=== PATIENT | female | born 1990 | race Caucasian/White ===

== ENCOUNTER 2024-11-21 19:42 | Emergency (ER) | payer BC, SELFPAY ==
[2024-11-21] VITALS (7 sets, daily range): BP systolic 94–138; BP diastolic 45–83; PULSE 76–82; RESP 17–18; TEMP 36.9; O2SAT 95–100; BMI 31.0
--- OUTSIDE RECORDS SUMMARY | 2024-11-21 | XMS_ITS | Encounter Summary ---
Author Organization [facility] Address [address] [place] [address] Care Team Providers Care Garment Patternmaker Name Role Phone Unavailable Primary Care Provider Unavailabl e Reason for Visit * Reason Comments Chest Pain Vomiting Encounter Details Date Type Department Care Team (Late st Contact Info) Description 11/21/2024 - 11/21/2024 3:35 AM CDT Emergency [facility] Emergency Medicine [address] [facility] [address] [place] [address] Francisco J Richards MD [address] [place] [address] [place] [address] Gastroenteritis (Primary Dx) Discharge Disposition: Home or Self Care Social History Tobacco Use Types Packs/Day Years Used Date Smoking Tobacco: Never Smokeless Tobacco: Never Tobacco Cessation:Counseling Given: Not Answered Alcohol Use Standard Drinks/Week Comments Not Currently 0 (1 standard drink = 0.6 oz pur e alcohol) Feeling Safe Answer Date Recorded Are you in a relationship wi th someone who hurts you emotionally and/or physically? No 11/21/2024 Comments No Sex and Gender Information Value Date Recorded Sex Assigned at Not on file Legal Sex Female 11:55 PM CDT Gender Identity Not on file Sexual Orientation Not on file documented as of this encounter Last Filed Vital Signs Vital Sign Reading Time Taken Comments Blood Pressure 103/73 11/21/2024 3:30 AM CDT Pulse 87 11/21/2024 3:30 AM CDT Temperature 36.4 C (97.6 F) 11/21/2024 12:03 AM CDT Respiratory Rate 20 11/21/2024 3:30 AM CDT Oxygen Saturation 97% 11/21/2024 3:30 AM CDT Inhaled Oxygen Concentration - - Weight 71.7 kg (158 lb) 11/21/2024 12:03 AM CDT Height 152.4 cm (5') 11/21/2024 12:03 AM CDT Body Mass Index 30.86 11/21/2024 12:03 AM CDT documented in this encounter Discharge Instructions * Attachments The following attachments cannot be sent through Care Everywhere. * Gastroenteritis (Salvadorean) * Ondansetron (Salvadorean) * Prochlorperazine (Salvadorean) * Hydromorphone (Salvadorean) documented in this encounter Medications at Time of Discharge norgestrel (OPILL ORAL) Take by mouth. ondansetron (ZOFRAN ODT) 4 mg Tablet, Rapid Dissolve Take 1 Tablet (4 mg) by mouth every 8 hours as needed for Nausea/Emesis. Dissolve tablet on top of tongue, then swallow with saliva. 20 Tablet 11/21/2024 ondansetron (ZOFRAN ODT) 4 mg Tablet, Rapid Dissolve Take 1 Tablet (4 mg) by mouth every 8 hours as needed for Nausea/Emesis. Dissolve tablet on top of tongue, then swallow with saliva. 4 Tablet 11/21/2024 documented as of this encounter Progress Notes * Kameron Perera RCP - 11/21/2024 12:10 AM CDT EKG completed. Results given to Dr. RICHARDS and scanned into [place] [facility]. documented in this encounter ED Notes * Krissy Klein APRN - 11/21/2024 7:20 AM CDT Patient's called the emergency department this morning stating that the patient's pain had returned in her chest. He requested that we call the pharmacy and prescribe something for her pain. I did discuss with the that since the patient had some relief prior to discharge and was discharged by the mushroom growing supervisor physician that in order to prescribe her a pain medication that we would n eed to reevaluate her especially based on the complaint of chest pain. The became angry andstated that is fucking ridiculous are you fucking kidding me. I have to come all the way back and there and have another fucking thousand dollar bill when we were just there a few hours ago. As I attempted to explain that we could not prescribe pain medication or make a diagnosis without seeing the patient, the continued to yell and curse over the phone. I expressed that it was unnecessary for him to speak this way and that I was simply trying to help to which he replied come on ladygrow some balls I am an adult this how adults fucking talk. He continued to cuss and yell over thephone without listening to what I was trying to explain to him. I stated if she is having new or worsening pain we would be happy to see her and you can bring her up here for a revaluation. At thispoint a call was ended on my end due to to the continuing to yell and curse. He did call back and I again attempted to explain to him given that the patient was discharged by the mushroom growing supervisor physician after being medicated and having relief, we cannot prescribe pain medication without evaluating her chest pain. The patient then stated this is fucking insane I am trying to help my we were just up there for 3 fucking hours ago. I explained that I cannot legally prescribe pain medications without evaluating the patient and he said that is a fucking lie, you can too. He continued to yell and then hung up the phone when I again told him that I could not prescribe her a pain medication. * Becky Parra RN - 11/21/2024 3:18 AM CDT Pt states that her pain is a bit better and is a 6/10 and that her nausea has subsided. Explained to her that the Dr wanted her nausea gone and CP to be better before she went home. Asked patient if those things were met and if she felt well enough to go home and she said yes. Notified Dr. Richards of conversation with patient and he said to discharge patient. * Becky Parra RN - 11/21/2024 2:20 AM CDT Pt reports no relief in CP and that it is a 7/10 on pain scale. Provider notified and order for additional pain medication obtained. See orders. * Becky Parra RN - 11/21/2024 1:20 AM CDT Pt drank water and is currently vomiting green watery emesis. Notified provider and order placed for compazine 5mg IV x 1. * Becky Parra RN - 11/21/2024 1:08 AM CDT Take home pack of zofran given to patient with education instructions. Patient verbalized understand of medication education/and how to take medication. * Becky Parra RN - 11/21/2024 12:50 AM CDT Pt asked for water and was educated on not to drink water until her nausea was better. * Becky Parra RN - 11/21/2024 12:12 AM CDT Pt states that she has had mid sternal CP that is intermittent and is described as tightness with vomiting/dry heaving x 3 hours [employer]. Pt states that her and her went to a new diner today around noon and they ate the same thing but she had vegetables that he didn't have. Pt states that she is on BC pills and doesn't think there is a chance she is . Pt denies SOB, abdominal pain or light headedness but states she is a little dizzy. Pt is cool and clammy to the touch. bedside with patient. documented in this encounter Plan of Treatment Not on file documented as of this encounter Procedures Procedure Name Priority Date/Time Associated Diagnosis Comments CBC WITH DIFFERENTIAL Stat 11/21/2024 12:15 AM CDT LIPASE Stat 11/21/2024 12:15 AM CDT COMPREHENSIVE METABOLIC PANEL Stat 11/21/2024 12:15 AM CDT documented in this encounter Results * LIPASE (11/21/2024 12:15 AM CDT) LIPASE 52 13 - 60 U/L 11/21/2024 12:42 AM CDT [facility] Blood BLOOD SPECIMEN / Unknown Collection / Unknown 11/21/2024 12:15 AM CDT 11/21/2024 12:25 AM CDT Francisco J Richards MD CHEMISTRY ORDERABLES Fin al Result [facility] CLIA # [id number] [address] [place] [address] [id number] * (ABNORMAL) COMPREHENSIVE METABOLIC PANEL (11/21/2024 12:15 AM CDT) SODIUM 136 136 - 145 mmol/L 11/21/2024 12:42 AM CDT [facility] POTASSIUM 4.4 3.5 - 5.1 mmol/L 11/21/2024 12:42 AM CDT [facility] CHLORIDE 101 98 - 107 mmol/L 11/21/2024 12:42 AM CDT [facility] CO2 17(L) 22 - 29 mmol/L 11/21/2024 12:42 AM CDT [facility] CALCIUM 10.0 8.6 - 10.0 mg/dL 11/21/2024 12:42 AM T [facility] BUN 15 6 - 20 mg/dL 11/21/2024 12:42 AM T [facility] CREATININE 0.79 0.51 - 0.95 mg/dL 11/21/2024 12:42 AM [facility] GLUCOSE 176(H) 74 - 99 mg/dL 11/21/2024 12:42 AM [facility] TOTAL PROTEIN 8.0 6.6 - 8.7 g/dL 11/21/2024 12:42 AM [facility] ALBUMIN 4.7 3.5 - 5.2 g/dL 11/21/2024 12:42 AM [facility] BILIRUBIN TOTAL 0.6 0.0 - 1.2 mg/dL 11/21/2024 12:42 AM [facility] ALKALINE PHOSPHATASE 66 35 - 104 U/L 11/21/2024 12:42 AM [facility] AST 23 0 - 35 U/L 11/21/2024 12:42 AM [facility] Comment:Hemolysis present. R esult may be falsely elevated. ALT 12 0 - 35 U/L 11/21/2024 12:42 AM [facility] GFR >60 >=60 mL/min/1.7 3 sq meter 11/21/2024 12:42 AM [facility] Comment:eGFR calculated with 2020 CKD-EPI equation. Vegetarian diet, extremely high or low muscle mass, and may affect results. Cystatin C with Glomerular Filtration Rate is a suitable alternative for these patients. ANION GAP 18 5 - 20 mmol/L 11/21/2024 12:42 AM [facility] Blood BLOOD SPECIMEN / Unknown Collection / Unknown 11/21/2024 12:15 AM CDT 11/21/2024 12:25 AM CDT us Francisco J Richards MD CHEMISTRY ORDERABLES Fin al Result [facility] CLIA # [id number] [address] [place] [id number] * (ABNORMAL) CBC WITH DIFFERENTIAL (11/21/2024 12:15 AM CDT) WBC 14.9(H) 4.0 - 10.0 K/uL 11/21/2024 12:28 AM [facility] RBC 4.67 3.93 - 5.22 M/uL 11/21/2024 12:28 AM [facility] HEMOGLOBIN 14.4 11.2 - 15.7 g/dL 11/21/2024 12:28 AM [facility] HEMATOCRIT 41.7 34.1 - 44.9 % 11/21/2024 12:28 AM [facility] MCV 89.3 79.4 - 94.8 fL 11/21/2024 12:28 AM [facility] MCH 30.8 25.6 - 32.2 pg 11/21/2024 12:28 AM [facility] MCHC 34.5 32.2 - 35.5 g/dL 11/21/2024 12:28 AM [facility] RDW 13.2 11.0 - 14.5 % 11/21/2024 12:28 AM [facility] RDW-STDEV 42.5 36.9 - 56.9 fL 11/21/2024 12:28 AM [facility] PLATELETS 294 163 - 337 K/uL 11/21/2024 12:28 AM [facility] MPV 9.3(L) 10.0 - 14.8 fL 11/21/2024 12:28 AM [facility] NEUTROPHILS 85(H) 34 - 71 % 11/21/2024 12:28 AM [facility] LYMPHOCYTES 9(L) 19 - 52 % 11/21/2024 12:28 AM [facility] MONOCYTES 5 5 - 13 % 11/21/2024 12:28 AM [facility] EOSINOPHILS 1 1 - 6 % 11/21/2024 12:28 AM [facility] BASOPHILS 0 0 - 1 % 11/21/2024 12:28 AM [facility] IMMATURE GRANULOCYTES 1 % 11/21/2024 12:28 AM [facility] NEUTROPHIL ABSOLUTE 12.64(H) 1.56 - 6.13 K/uL 11/21/2024 12:28 AM CDT [facility] LYMPHOCYTE ABSOLUTE 1.35 1.20 - 3.40 K/uL 11/21/2024 12:28 AM CDT [facility] MONOCYTE ABSOLUTE 0.67(H) 0.24 - 0.36 K/uL 11/21/2024 12:28 AM CDT [facility] EOSINOPHIL ABSOLUTE 0.08 0.04 - 0.36 K/uL 11/21/2024 12:28 AM CDT [facility] BASOPHILS ABSOLUTE 0.06 0.01 - 0.08 K/uL 11/21/2024 12:28 AM CDT [facility] IMMATURE GRANULOCYTES ABSOLUTE 0.10 K/uL 11/21/2024 12:28 AM T [facility] Blood BLOOD SPECIMEN / Unknown Collection / Unknown 11/21/2024 12:15 AM CDT 11/21/2024 12:25 AM CDT Francisco J Richards MD HEMATOLOGY ORDERABLES [id number] [address] [place] [phone] documented in this encounter Visit Diagnoses Diagnosis Gastroenteritis- Primary Other and unspecified noninfectious gastroenteritis and colitis documented in this encounter Administered Medications Inactive Administered Medications - up to 3 most recent administrations Medication Order MAR Action Action Date Dose Rate Site aluminum-magnesium HYDROXIDE (MAALOX) 200-200 mg/5 mL oral suspension 20 mL 20 mL, Oral, ONE TIME ONLY, 1 dose, On 11/21/24 at 0200, Routine Given 11/21/2024 2:09 AM CDT 20 mL HYDROmorphone (PF) (DILAUDID) injection 0.5 mg 0.5 mg, IV, ONE TIME ONLY, 1 dose, On 11/21/24 at 0230, RoutineIndications:pain Given 11/21/2024 2:36 AM CDT 0.5 mg lidocaine (XYLOCAINE) 2 % viscous oral solution 10 mL 10 mL, Mouth/Throat, ONE TIME ONLY, 1 dose, On 11/21/24 at 0200, Routine Given 11/21/2024 2:09 AM CDT 10 mL ondansetron (ZOFRAN) 4 mg/2 mL injection 4 mg 4 mg, IV, ONE TIME ONLY, 1 dose, On 11/21/24 at 0015, Stat Given 11/21/2024 12:31 AM CDT 4 mg prochlorperazine (COMPAZINE) injection 5 mg 5 mg, IV, ONE TIME ONLY, 1 dose, On 11/21/24 at 0130, Stat Given 11/21/2024 1:37 AM CDT 5 mg sodium chloride 0.9 % bolus solution 1,000 mL 1,000 mL, IV, ONE TIME ONLY, 1 dose, On 11/21/24 at 0015, at 2,000 mL/hr, Administer over 30 Minutes, Routine New Bag 11/21/2024 12:31 AM CDT 1,000 mL 2000 mL/hr documented in this encounter Active and Recently Administered Medications Times are shown in CDT. Scheduled Medication Order 11/19/2024 11/20/2024 11/21/2024 aluminum-magnesium HYDROXIDE (MAALOX) 200-200 mg/5 mL oral suspension 20 mL (COMPLETED)(Linked Group 1) 20 mL, Oral, ONE TIME ONLY, 1 dose, On 11/21/24 at 0200, Routine 0209 (Given - Provid er: Becky Parra RN) HYDROmorphone (PF) (DILAUDID) injection 0.5 mg (COMPLETED) 0.5 mg, IV, ONE TIME ONLY, 1 dose, On 11/21/24 at 0230, Routine 0236 (Given - Provid er: Becky Parra RN) lidocaine (XYLOCAINE) 2 % viscous oral solution 10 mL (COMPLETED)(Linked Group 1) 10 mL, Mouth/Throat, ONE TIME ONLY, 1 dose, On 11/21/24 at 0200, Routine 0209 (Given - Provid er: Becky Parra RN) ondansetron (ZOFRAN) 4 mg/2 mL injection 4 mg (COMPLETED) 4 mg, IV, ONE TIME ONLY, 1 dose, On 11/21/24 at 0015, Stat 0031 (Given - Provid er: Marly Arnett RN) prochlorperazine (COMPAZINE) injection 5 mg (COMPLETED) 5 mg, IV, ONE TIME ONLY, 1 dose, On 11/21/24 at 0130, Stat 0137 (Given - Provid er: Becky Parra RN) sodium chloride 0.9 % bolus solution 1,000 mL (COMPLETED) 1,000 mL, IV, ONE TIME ONLY, 1 dose, On 11/21/24 at 0015, at 2,000 mL/hr, Administer over 30 Minutes, Routine 0031 (New Bag - Prov ider: Marly Arnett RN)0101 (Stopped - Provider: Becky Parra RN) Linked Groups Order Group 1: aluminum-magnesium HYDROXIDE (MAALOX) 200-200 mg/5 mL oral suspension 20 mL (COMPLETED)Jump to med 20 mL, Oral, ONE TIME ONLY, 1 dose, On 11/21/24 at 0200, Routine And lidocaine (XYLOCAINE) 2 % viscous oral solution 10 mL (COMPLETED)Jump to med 10 mL, Mouth/Throat, ONE TIME ONLY, 1 dose, On 11/21/24 at 0200, Routine documented in this encounter
--- OUTSIDE RECORDS SUMMARY | 2024-11-21 19:50 | XMS_ITS | Encounter Summary ---
Author Organization [employer] Address [address] [facility] Attn: Epic Prelude ADT ELISHA AUGUST [address] Care Team Providers Care Paymaster Of Purses Name Role Phone Unavailable Primary Care Provider Unavailabl e Encounter Details Date Type Department Care Team (Latest Contact Info) Description 11/21/2024 Travel Social History Tobacco Use Types Packs/Day Years Used Date Smoking Tobacco: Never Smokeless Tobacco: Never Alcohol Use Standard Drinks/Week Comments Not Currently [...] on file documented as of this encounter Plan of Treatment Not on file documented as of this encounter Visit Diagnoses Not on filedocumented in this encounter
--- OUTSIDE RECORDS SUMMARY | 2024-11-21 19:50 | XMS_ITS | Clinical Summary ---
Author Organization [facility] Address [address] [place] [address] [place] [address] Care Team Providers Care Industrial Equipment Mechanic Name Role Phone Pcp, Pcp Primary Care Provider Unavailabl e Allergies Active Allergy Reactions Criticality Noted Date Comments C[place]ut Hives Medium 01/08/2023 Medications No known medications Active Problems No known active problems Social History Tobacco Use Types Packs/Day Years Used Date Smoking Tobacco: Never Assessed Comments Unknown Sex and Gender Information Value Date Recorded Sex Assigned at Female 01/06/2024 8:14 AM SOLAR SALES MANAGER Legal Sex Female 8:11 AM SOLAR SALES MANAGER Gender Identity Not on file Sexual Orientation Not on file Last Filed Vital Signs Vital Sign Reading Time Taken Comments Blood Pressure 115/80 01/06/2024 8:22 AM SOLAR SALES MANAGER Pulse 80 01/06/2024 8:22 AM SOLAR SALES MANAGER Temperature 36.8 C (98.2 F) 01/06/2024 8:22 AM SOLAR SALES MANAGER Respiratory Rate 18 01/06/2024 8:22 AM SOLAR SALES MANAGER Oxygen Saturation 98% 01/06/2024 8:22 AM SOLAR SALES MANAGER Inhaled Oxygen Concentration - - Weight 77.1 kg (170 lb) 01/06/2024 8:22 AM SOLAR SALES MANAGER Height 152.4 cm (5') 01/06/2024 8:22 AM SOLAR SALES MANAGER Body Mass Index 33.2 01/06/2024 8:22 AM SOLAR SALES MANAGER Plan of Treatment Health Maintenance Due Date Last Done Comments Annual Physical 1993 Varicella Vaccines (1 of 2 - 13+ 2-dose series) 2003 Hepatitis B Vaccines (1 of 3 - 19+ 3-dose series) 2009 Pap Smear 2011 HPV Vaccines (1 - 3-dose SCD M series) 2017 Cervical Cancer Screening 2020 HPV/Cotest 2020 Influenza Vaccine (#1) 2024 11/28/2022 DTaP/Tdap/Td Vaccines (2 - T d or Tdap) 11/28/2032 11/28/2022 Respiratory Syncytial Virus (RSV) Adult Series (1 - 1-dose 75+ series) 2065 HIB Vaccines Aged Out No longer eligi ble based on patient's age to complete this topic Hepatitis A Vaccines Aged Out No long er eligible based on patient's age to complete this topic IPV Vaccines Aged Out No longer eligi ble based on patient's age to complete this topic Meningococcal Vaccine Aged Out No lety bibi eligible based on patient's age to complete this topic Pneumococcal Vaccine: Pediat rics (0 to 5 Years) and At-Risk Patients (6 to 64 Years) Aged Out No longer eligi ble based on patient's age to complete this topic Rotavirus Vaccines Aged Out No longer eligible based on patient's age to complete this topic Insurance [facility] PPO POS Care Teams Industrial Equipment Mechanic Relationship Specialty Start Date End Date Pcp, Pcp [address] [place] [id number] PCP - General Family Medicine 01/06/24
--- OUTSIDE RECORDS SUMMARY | 2024-11-21 19:50 | XMS_ITS | Clinical Summary ---
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 01/08/2023 Encounters Date Type Department Care Team Description 10/13/2024 Results Follow-Up [facility] [address] [place] [phone] Dominique Hannah MD Gynecologic Pap Test (Image-guided), Liquid-based Preparation and Human Papillomavirus (HPV) (Aptima ) With Reflex to HPV Genotypes 16 and 18,45 16 and 18 10/06/2024 10:30 AM CDT Office Visit [facility] [address] [place] [phone] Dominique Hannah MD Encounter for gynecological examination without abnormal finding (Primary Dx); Cervical cancer screening from Last 3 Months Immunizations Immunization Administration Dates Next Due FLUCELVAX QUAD PF 11/28/2022 Rho (D) Immune Globulin 01/09/2023,11/14/2022 Tdap 11/28/2022 Family History Medical History Relation Name Comments Heart attack Father Heart attack Mother Relation Name Status Comments Father Alive Mother Social History Tobacco Use Types Packs/Day Years Used Date Smoking Tobacco: Never Passive Smoke Exposure: Never Smokeless Tobacco: Never Alcohol Use Standard Drinks/Week Comments Not Currently 0 (1 standard drink = 0.6 oz pur e alcohol) PHQ-2 Answer Date Recorded PHQ-9 Total Score 0 01/08/2023 Hunger Vital Sign Answer Date Recorded Within the past 12 months, y ou worried that your food would run out before you got the money to buy more. Never true 01/09/20 Within the past 12 months, t he food you bought just didn't last and you didn't have money to get more. Never true 01/08/2023 Utilities Answer Date Recorded In the past 12 months has e [employer], gas, oil, or water company threatened to shut off services in your home? No 01/08/2023 Living Situation Answer Date Recorded What is your living situation today? I have a [facility] place to live 01/08/[address] you li ve. Do you have problems with any of the following? CHOOSE ALL THAT APPLY None of the above 01/08/2023 Personal Safety Answer Date Recorded SDOH Safety Total Score 4 01/09/20 Transportation Needs Answer Date Record ed In the past 12 months, has l ack of reliable transportation kept you from medical appointments, meetings, work or from getting things needed for daily living? No 01/08/2023 Medication Affordability Answer Date Re corded In the last 6 months, how of ten have you been unable to fill a prescribed medication because you could not afford it? Never 09/17/2022 In the last 6 months, how of ten has the cost of your medication been a stressor to you? Never 09/17/2022 Comments No Sex and Gender Information Value Date Recorded Sex Assigned at Not on file Legal Sex Female 8:48 AM CDT Gender Identity Not on file Sexual Orientation Not on file Last Filed Vital Signs Vital Sign Reading Time Taken Comments Blood Pressure 111/75 10/06/2024 10:30 AM CDT Pulse 102 10/06/2024 10:30 AM CDT Temperature 36.4 C (97.5 F) 01/10/2023 8:23 AM VP DATA Respiratory Rate 17 01/10/2023 8:23 AM VP DATA Oxygen Saturation 99% 01/10/2023 8:23 AM VP DATA Inhaled Oxygen Concentration - - Weight 73.9 kg (163 lb) 10/06/2024 10:30 AM CDT Height 152.4 cm (5') 10/06/2024 10:30 AM CDT Body Mass Index 31.83 10/06/2024 10:30 AM CDT Plan of Treatment Upcoming Encounters Date Type Department Care Team (Late st Contact Info) Description 10/07/2025 10:45 AM CDT Office Visit [facility] [address] [place] [phone] [place] [address] [address] [facility] [address] [place] [address] Health Maintenance Due Date Last Done Comments HEPATITIS C SCREENING 2008 COVID-19 VACCINE (2023-2 5 season) 2024 INFLUENZA VACCINE (#1) 2024 11/28/2022 CERVICAL CANCER SCREENING 10/07/2027 10/06/2024 MENINGOCOCCAL B SERIES VACCINE Aged Out No longer eligible based on patient's age to complete this topic Pneumococcal Vaccine: Pediat rics (0 to 5 Years) and At-Risk Patients (6 to 49 Years) Aged Out No longer eligi ble based on patient's age to complete this topic Procedures Procedure Name Priority Date/Time Associated Diagnosis Comments GYNECOLOGIC PAP TEST (IMAGE-GUIDED), LIQUID-BASED PREPARATION AND HUMAN PAPILLOMAVIRUS (HPV) (APTIMA ) WITH REFLEX TO HPV GENOTYPES 16 AND 18,45 Routine 10/06/2024 10:52 AM CDT Cervical cancer screening from Last 3 Months Results * Gynecologic Pap Test (Image-guided), Liquid-based Preparation and Human Papillomavirus (HPV) (Aptima??) With Reflex to HPV Genotypes 16 and 18,45 16 and 18 (10/06/2024 10:52 AM CDT) Diagnosis Comment [facility] Comment:NEGATIVE FOR INTRAEP ITHELIAL LESION OR MALIGNANCY. Specimen adequacy Comment [facility] Comment:Satisfactory for darby luation. No endocervical component is identified. Performed by: Comment [facility] Comment:Aaron Templeton tologist (ASCP) Comment . [facility] Note: Comment [facility] 02 Comment: The Pap smear is a screening test designed to aid in the detection of premalignant and malignant conditions of the uterine cervix. It is not a diagnostic procedure and should not be used as the sole means of detecting cervical cancer. Both false-positive and false-negative reports do occur. Test methodology Comment [facility] 02 Comment: This liquid based ThinPrep(R) pap test was screened with the use of an image guided system. HPV Aptima Negative Negative [facility] 03 Comment: This nucleic acid amplification test detects fourteen high-risk HPV types (16,18,31,33,35,39,45,51,52,56,58,59,66,68) without differentiation. HPV genotype reflex Comment [facility] Comment:Criteria not met, HP V Genotype not performed. Cervical 10/06/2024 10:5 2 AM CDT 10/06/2024 Narrative [facility] - 10/12/2024 8:08 PM CDT Performed at: [address] [id number] Fur Cutter: Angie Hobbs MD, Phone: [phone] Performed at: [facility] Cytology [address] [place] [id number] Fur Cutter: Jhonathan Stanford MD, Phone: [phone] Performed at: [address] [id number] Fur Cutter: Jhonathan Stanford MD, Phone: [phone] Specimen Comment: [id number] Specimen Comment: No. of containers..01 ThinPrep Vial Dominique Hannah MD PATHOLOGY/CYTOLOGY OR DERABLES Final Result [facility] 02 [facility] 03 from Last 3 Months Insurance [id number] (Home) [address] [place] [address] [facility] CHOICE PPO Advance Directives For more information, please contact: [phone] * Full Code (Latest Code Status on File) Date Activated Date Inactivated Comments 01/07/2023 4:43 PM 01/08/2023 5:14 PM Question Answer Comments Code Status decision reached by: Patient by mean s of Oral Directive Care Teams Pressroom Worker Relationship Specialty Start Date End Date Asked, No Pcp [id number] PCP - General 09/13/22
--- OUTSIDE RECORDS SUMMARY | 2024-11-21 19:50 | XMS_ITS | Patient Health Record ---
Author Organization [facility] Address [address] [place] [address] Support Name Relationship Address Phone GALI JOSY Guarantor Unknown Unavaila ble Allergies No Known Allergies Reason For Referral No Information Problems Problem Type SNOMED Code ICD Code Onset Dates Problem Status W/U Status Risk Notes Problem Closed fracture of distal phalanx of finger (55078065) Closed fracture of distal phalanx or phalanges of hand (816.02) Active confirmed Problem Pain in limb (76007048) Pain in unspecified limb (M79.609) Active confirmed Plan Of Treatment No Information Medical (General) History Surgical History Surgery Date(Month/Year) Problem Title : Tonsillectomy, Problem S tatus : Active,
--- OUTSIDE RECORDS SUMMARY | 2024-11-21 19:50 | XMS_ITS | Encounter Summary ---
[facility] Organization [facility] Address [address] [place] [address] Care Team Providers Care Paperhanger Supervisor Name Role Phone Asked, No Pcp Primary Care Provider Unavailabl e Encounter Details Date Type Department Care Team (Late st Contact Info) Description 01/08/2023 Documentation [facility] [address] [place] [address] Provider, Unknown [address] [facility] [address] [place] [address] Social History Tobacco Use Types Packs/Day Years [...] money to buy more. Never true 01/09/20 23 Within the past 12 months, t he food you bought just didn't last and you didn't have money to get more. Never true 01/08/2023 Utilities Answer Date Recorded In the past 12 months has e electric, gas, oil, or water company threatened to shut off services in your home? No 01/08/2023 Living Situation Answer Date Recorded What is your living situation today? [facility] 01/08/2023 Think about the [...] on file documented as of this encounter Functional Status * Drug Abuse Screening Test (DAST-10) Question Answer Date of Assessment Author DAST-10 Score 1 01/08/2023 6:44 AM SENIOR TRIAL ATTORNEY Raina Li RN documented as of this encounter Plan of Treatment Upcoming Encounters Date Type Department Care Team (Late st Contact Info) Description 10/07/2025 10:45 AM CDT Office Visit [facility] [address] [place] [phone] [place] [address] [place] [address] documented as of this encounter Visit Diagnoses Not on filedocumented in this encounter Care Teams Paperhanger Supervisor Relationship Specialty Start Date End Date Asked, No Pcp [id number] PCP - General 09/13/22 documented as of this encounter
--- OUTSIDE RECORDS SUMMARY | 2024-11-21 19:50 | XMS_ITS | Clinical Summary ---
Author Organization Daniela Muller [facility] Address [address] [place] [address] Phone Care Team Providers Care C Java Developer Name Role Phone Unavailable Primary Care Provider Unavailabl e Allergies No known active allergies Medications norgestrel (OPILL ORAL) Take by mouth. Active ondansetron (ZOFRAN ODT) 4 mg Tablet, Rapid Dissolve Take 1 Tablet (4 mg) by mouth every 8 hours as needed for Nausea/Emesis . Dissolve tablet on top of tongue, then swallow with saliva. 20 Tablet 11/21/2024 Active ondansetron (ZOFRAN ODT) 4 mg Tablet, Rapid Dissolve Take 1 Tablet (4 mg) by mouth every 8 hours as needed for Nausea/Emesis . Dissolve tablet on top of tongue, then swallow with saliva. 4 Tablet 11/21/2024 Active Encounters Date Type Department Care Team Description 11/21/2024 Travel 11/21/2024 - 11/21/2024 3:35 AM CDT Emergency [facility] Emergency Medicine [address] [facility] [address] [place] [address] Francisco J Richards MD Gastroenteritis (Primary Dx) Discharge Disposition: Home or Self Care from Last 3 Months Social History Tobacco Use Types Packs/Day Years [...] Mass Index 30.86 11/21/2024 12:03 AM CDT Plan of Treatment Health Maintenance Due Date Last Done Comments HEPATITIS B VACCINES (1 of 3 - 19+ 3-dose series) 02/25 HPV/Cotest (21-29) 2011 HPV VACCINES (1 - 3-dose SCDM series) 2017 CERVICAL CANCER SCREENING 2020 HPV/Cotest (30-65) 2020 PAP SMEAR 2020 INFLUENZA VACCINE (#1) 2024 11/28/2022 DTAP/TDAP/TD VACCINES (2 - Td or Tdap) 11/28/2032 Procedures Procedure Name Priority Date/Time Associated Diagnosis Comments LIPASE Stat 11/21/2024 12:15 AM CDT COMPREHENSIVE METABOLIC PANEL Stat 11/21/2024 12:15 AM CDT CBC WITH DIFFERENTIAL Stat 11/21/2024 12:15 AM CDT from Last 3 Months Results * (ABNORMAL) CBC WITH DIFFERENTIAL (11/21/2024 12:15 AM CDT) WBC 14.9(H) 4.0 - 10.0 K/uL 11/21/2024 12:28 AM CDT [facility] RBC 4.67 3.93 - 5.22 M/uL 11/21/2024 12:28 AM [facility] HEMOGLOBIN 14.4 11.2 - 15.7 g/dL 11/21/2024 12:28 AM [facility] HEMATOCRIT 41.7 34.1 - 44.9 % 11/21/2024 12:28 AM [facility] MCV 89.3 79.4 - 94.8 fL 11/21/2024 12:28 AM [facility] MCH 30.8 25.6 - 32.2 pg 11/21/2024 12:28 AM [facility] MCHC 34.5 32.2 - 35.5 g/dL 11/21/2024 12:28 AM [facility] RDW 13.2 11.0 - 14.5 % 11/21/2024 12:28 AM [facility] RDW-STDEV 42.5 36.9 - 56.9 fL 11/21/2024 12:28 AM [facility] PLATELETS 294 163 - 337 K/uL 11/21/2024 12:28 AM [facility] MPV 9.3(L) 10.0 - 14.8 fL 11/21/2024 12:28 AM [facility] NEUTROPHILS 85(H) 34 - 71 % 11/21/2024 12:28 AM [facility] LYMPHOCYTES 9(L) 19 - 52 % 11/21/2024 12:28 AM [facility] MONOCYTES 5 5 - 13 % 11/21/2024 12:28 AM [facility] EOSINOPHILS 1 1 - 6 % 11/21/2024 12:28 AM [facility] BASOPHILS 0 0 - 1 % 11/21/2024 12:28 AM [facility] IMMATURE GRANULOCYTES 1 % 11/21/2024 12:28 AM [facility] NEUTROPHIL ABSOLUTE 12.64(H) 1.56 - 6.13 K/uL 11/21/2024 12:28 AM [facility] LYMPHOCYTE ABSOLUTE 1.35 1.20 - 3.40 K/uL 11/21/2024 12:28 AM CDT [facility] MONOCYTE ABSOLUTE 0.67(H) 0.24 - 0.36 K/uL 11/21/2024 12:28 AM CDT [facility] EOSINOPHIL ABSOLUTE 0.08 0.04 - 0.36 K/uL 11/21/2024 12:28 AM CDT [facility] BASOPHILS ABSOLUTE 0.06 0.01 - 0.08 K/uL 11/21/2024 12:28 AM CDT [facility] IMMATURE GRANULOCYTES ABSOLUTE 0.10 K/uL 11/21/2024 12:28 AM CDT [facility] Blood BLOOD SPECIMEN / Unknown Collection / Unknown 11/21/2024 12:15 AM CDT 11/21/2024 12:25 AM CDT Francisco J Richards MD HEMATOLOGY ORDERABLES Fi nal Result Performing Organization Address City/[facility]/ZIP Co de Phone Number [facility] CLIA # [id number] [address] [place] [address] * LIPASE (11/21/2024 12:15 AM CDT) LIPASE 52 13 - 60 U/L 11/21/2024 12:42 AM CDT [facility] Blood BLOOD SPECIMEN / Unknown Collection / Unknown 11/21/2024 12:15 AM CDT 11/21/2024 12:25 AM CDT Francisco J Richards MD CHEMISTRY ORDERABLES Fin al Result [facility] CLIA # [id number] [address] [place] [id number] * (ABNORMAL) COMPREHENSIVE METABOLIC PANEL (11/21/2024 12:15 AM CDT) SODIUM 136 136 - 145 mmol/L 11/21/2024 12:42 AM CDT [facility] POTASSIUM 4.4 3.5 - 5.1 mmol/L 11/21/2024 12:42 AM [facility] CHLORIDE 101 98 - 107 mmol/L 11/21/2024 12:42 AM [facility] CO2 17(L) 22 - 29 mmol/L 11/21/2024 12:42 AM [facility] CALCIUM 10.0 8.6 - 10.0 mg/dL 11/21/2024 12:42 AM [facility] BUN 15 6 - 20 mg/dL 11/21/2024 12:42 AM [facility] CREATININE 0.79 0.51 - 0.95 mg/dL 11/21/2024 12:42 AM [facility] GLUCOSE 176(H) 74 - 99 mg/dL 11/21/2024 12:42 AM [facility] TOTAL PROTEIN 8.0 6.6 - 8.7 g/dL 11/21/2024 12:42 AM [facility] ALBUMIN 4.7 3.5 - 5.2 g/dL 11/21/2024 12:42 AM [facility] BILIRUBIN TOTAL 0.6 0.0 - 1.2 mg/dL 11/21/2024 12:42 AM [facility] ALKALINE PHOSPHATASE 66 35 - 104 U/L 11/21/2024 12:42 AM [facility] AST 23 0 - 35 U/L 11/21/2024 12:42 AM [facility] Comment:Hemolysis present. R esult may be falsely elevated. ALT 12 0 - 35 U/L 11/21/2024 12:42 AM [facility] GFR >60 >=60 mL/min/1.7 3 sq meter 11/21/2024 12:42 AM [facility] Comment:eGFR calculated with 2020 CKD-EPI equation. Vegetarian diet, extremely high or low muscle mass, and may affect results. Cystatin C with Glomerular Filtration Rate is a suitable alternative for these patients. ANION GAP 18 5 - 20 mmol/L 11/21/2024 12:42 AM [facility] Blood BLOOD SPECIMEN / Unknown Collection / Unknown 11/21/2024 12:15 AM CDT 11/21/2024 12:25 AM CDT Francisco J Richards MD CHEMISTRY ORDERABLES Fin al [id number] [address] [place] [id number] from Last 3 Months Insurance [facility] OUT OF STATE
--- OUTSIDE RECORDS SUMMARY | 2024-11-21 19:50 | XMS_ITS | Encounter Summary ---
Author Organization [facility] Address [address] [place] [address] Care Team Providers Care Nitric Acid Concentrator Operator Name Role Phone Asked, No Pcp Primary Care Provider Unavailabl e Encounter Details Date Type Department Care Team (Late st Contact Info) Description 10/13/2024 Results Follow-Up [facility] [address] [place] [address] [place] [address] [place] [address] Gynecologic Pap Test (Image-guided), Liquid-based Preparation and Human Papillomavirus (HPV) (Aptima ) With Reflex to HPV Genotypes 16 and 18,45 16 and 18 Social History Tobacco Use Types Packs/Day Years [...] your living situation today? I have a [facility] place to live 01/08/2023 Think about the [...] on file documented as of this encounter Progress Notes * Dominique Hannah MD - 10/13/2024 8:08 AM CDT Your result is normal. documented in this encounter Plan of Treatment Upcoming Encounters Date Type Department Care Team (Late st Contact Info) Description 10/07/2025 10:45 AM CDT Office Visit [facility] [address] [place] [phone] [place] [address] [place], [place] [address] documented as of this encounter Visit Diagnoses Not on filedocumented in this encounter Care Teams Nitric Acid Concentrator Operator Relationship Specialty Start Date End Date Asked, No Pcp [phone] PCP - General 09/13/22 documented as of this encounter
--- NOTE | 2024-11-21 20:43 | CTR_ITS ---
PROCEDURE INFORMATION: Exam: CT Abdomen And Pelvis With Contrast Exam date and time: 11/21/2024 9:33 PM Age: 34 years old Clinical indication: Nausea and vomiting; Abdominal pain; Generalized; Prior surgery; Surgery date: 6+ months; Surgery type: Gb; Diffuse abd pain with n/v; Additional info: Persistent n/v, abd pain TECHNIQUE: Imaging protocol: Computed tomography of the abdomen and pelvis with contrast. Radiation optimization: All CT scans at this facility use at least one of these dose optimization techniques: automated exposure control; mA and/or kV adjustment per patient size (includes targeted exams where dose is matched to clinical indication); or iterative reconstruction. Contrast material: OMNI 350; Contrast volume: 100 ml; Contrast route: INTRAVENOUS (IV); COMPARISON: No relevant prior studies available. RADIATION DOSE METRICS: Total DLP (mGy-cm): 539.7 FINDINGS: Diaphragm: Small sliding-type hiatal hernia. Liver: 1.1 cm hypodensity in the medial segment left hepatic lobe. Gallbladder and biliary ducts: Status post cholecystectomy. No biliary ductal dilatation. Pancreas: Normal. No ductal dilation. Spleen: Normal. No splenomegaly. Adrenal glands: Normal. No mass. Kidneys and ureters: Subcentimeter right renal cortical hypodensity is too small to characterize but likely represents a cyst. Possible 2 mm nonobstructing calculus in the right upper pole calyx. No hydronephrosis. Stomach and bowel: Areas of mild colonic wall thickening are seen. No bowel obstruction. Appendix: No evidence of appendicitis. Intraperitoneal space: Unremarkable. No free air. No significant fluid collection. Vasculature: Unremarkable. No abdominal aortic aneurysm. Lymph nodes: Unremarkable. No enlarged lymph nodes. Urinary bladder: Unremarkable as visualized. Reproductive: 2.6 cm right adnexal cyst likely represents a dominant follicle versus involuting corpus luteum. The uterus is unremarkable. Bones/joints: Unremarkable. No acute fracture. Soft tissues: Unremarkable. CT/CT abdomen pelvis w con* [id number] IMPRESSION: 1. Areas of mild bowel wall thickening are likely exaggerated by underdistention/peristalsis. Mild infectious/inflammatory colitis not excluded. 2. 1.1 cm hypodensity in the left hepatic lobe favors a hemangioma but is incompletely characterized. Consider nonemergent right upper quadrant ultrasound and/or MRI abdomen without and with contrast. 3. Small hiatal hernia. 4. Possible 2 mm nonobstructing right renal calculus, though assessment is somewhat limited due to possible excretion of intravenous contrast. 5. Additional nonemergent findings as above. COMMENTS: Consistent with the [employer]'s Incidental Findings Committee white paper (J Am Tushar Radiol 2018): Any incidental renal lesion less than 1 cm or classified as too small to characterize, or any incidental cystic renal lesion characterized as simple-appearing, is likely benign. No follow-up imaging is recommended for these lesions per consensus recommendations based on imaging criteria.
[2024-11-21 21:01] LABS: Hematocrit 40.8 % (36-47); Hemoglobin 14.20 g/dL (11.27-16.99); Mean Corpuscular HGB Conc 34.8 g/dL (30-55); Mean Corpuscular Hemoglobin 31.2 pg (27-33); Mean Corpuscular Volume 89.7 fl (85-98); Nucleated Red Blood Cells % 0 %; Platelet Count 313 10^3/cmm (157-399); Red Blood Count 4.55 10^6/uL (3.85-5.65); White Blood Count 14.50 10^3/uL (3.29-11.43)
[2024-11-21 21:27] LABS: HCG, Serum Qual Negative (Negative)
[2024-11-21 21:32] LABS: Alanine Aminotransferase 14 U/L (0-33); Albumin Level 4.9 g/dL (3.5-5.2); Alkaline Phosphatase 71 U/L (35-105); Anion Gap 20.3 (5-19); Aspartate Amino Transferase 15 U/L (0-32); Blood Urea Nitrogen 11 mg/dL (6-20); Calcium 9.7 mg/dL (8.5-10.5); Carbon Dioxide 18 mmol/L (22-29); Chloride 100 mmol/L (98-107); Creatinine Clr Calc Pharmacy 100.3764; Globulin 3.6 g/dL (1.3-4.6); Glucose 126 mg/dL (65-115); Lipase 19 U/L (13-60); Osmolality Calculated 281 mOsm/kg (285-295); Potassium 3.3 mmol/L (3.5-5.1); Sodium 135 mmol/L (136-145); Total Protein 8.5 g/dL (6.6-8.7)
[2024-11-21 21:33] LABS: Glucose Urine UA Negative (Normal); Nitrate Urine Negative (Negative)
[2024-11-21] MEDS: iohexol 350 mg/mL 500 mL Btl (per mL) IV (21:35)
[2024-11-21 21:38] LABS: Add Urine Microscopic? YES; Specific Gravity, Urine 1.034 (1.005-1.030)
--- NOTE | 2024-11-21 21:55 | W.ED.ABDPA2 ---
Documented by User: ANA PAULA Nguyễn 11/21/24 23:05 HPI - Abdominal Pain General: Chief Complaint: Abdominal Pain Stated Complaint: Nausea and vomiting W chest sore from vomiting Time Seen by Provider: 11/21/24 20:28 Source: patient Mode of arrival: ambulatory Limitations: no limitations History of Present Illness: Patient is a 34-year-old female who presents to the Emergency Department complaining of nausea and vomiting for the past 24 hours. Initial onset she went to [facility] in [place], had workup there and ultimately discharged diagnosed to gastroenteritis and chest pain. She states that despite being discharged and prescribed antiemetics for home, she is continue to vomit throughout the day. Does report that she smokes marijuana. She states that her chest pain and abdominal pain overall have improved, she is just concerned that she is continuing to vomit. She expresses concern that they did not do a CT image yesterday. She is retching at this time, no active vomiting however and her vitals are stable. Reports that she has a history of cholecystectomy. Denies possibility of . Denies any blood in her vomit. MD elicited complaint: abdominal pain Onset (ago): day(s) Pain Consistency: constant Associated Symptoms: Reports nausea and vomiting; Denies bloating, change in stool character, chills, constipation, diarrhea, dysuria, fever(s) and hematochezia Treatments prior to arrival: other (antiemetics) Related Data Previous Rx's ?Medication ?Instructions ?Recorded cefdinir 300 mg capsule 300 mg PO BID 5 days #10 caps 11/21/24 prochlorperazine 25 mg rectal 25 mg [place] BID PRN nausea and 11/21/24 suppository (Compazine) vomiting #12 ea prochlorperazine maleate 10 mg 10 mg PO Q8H PRN nausea and 11/21/24 tablet (Compazine) vomiting 24 hours #20 tabs Allergies Allergy/AdvReac Type Severity Reaction Status Date / Time No Known Allergies Allergy Verified 11/21/24 21:41 Review of Systems General: Reports: 10 or more systems reviewed and unremarkable except in HPI and below Const: Denies: fever(s), chills, change in appetite, change in weight or diaphoresis ENMT: Denies: throat pain or hoarseness Card: Denies: chest pain, palpitations or lightheadedness Resp: Denies: dyspnea, productive cough or wheezing GI: Reports: nausea and vomiting; Denies: abdominal pain, diarrhea, constipation, bloating, change in stool character or hematochezia : Denies: flank pain, difficulty voiding, dysuria, urinary frequency or urinary urgency Musc: Denies: neck pain or back pain Skin/Breast: Denies: rash or new lesions Neuro: Denies: headache(s) or dizziness Physical Exam Const: COMMON NORMALS: patient oriented x3, no limitations, alert and well nourished GENERAL APPEARANCE: cooperative and comfortable NUTRITIONAL APPEARANCE: obese ORIENTATION/CONSCIOUSNESS: Yes awake OTHER: Actively retching at bedside Neck/C-Spine: COMMON NORMALS: full ROM, supple, no meningeal signs and no JVD Resp: COMMON NORMALS: normal respiratory effort, No retractions, No use of accessory muscles and clear to auscultation bilaterally AUSCULTATION: clear to auscultation bilaterally, no crackles, no rales, no rhonchi and no wheezes Cardio: COMMON NORMALS: no JVD, regular rate, regular rhythm, S1 normal heart sound present, S2 normal heart sound present, No gallops present (Cardio), No clicks present (Cardio), No murmurs present (Cardio), No rub (Cardio) and Peripheral pulses 2+ throughout RATE: regular rate RHYTHM: regular rhythm HEART SOUNDS: S1 normal heart sound present and S2 normal heart sound present PERIPHERAL PULSES: Peripheral pulses 2+ throughout GI: COMMON NORMALS: Normal to inspection, nondistended, normoactive bowel sounds present, Soft to palpation, non-tender, No hepatosplenomegaly present and no masses AUSCULTATION: Yes normoactive bowel sounds PALPATION: Yes Soft to palpation, No Guarding due to palpation present (GI), No Rigid due to palpation and Yes No hepatosplenomegaly present RECTAL EXAM: deferred Extremity: COMMON NORMALS: normal to inspection and full ROM Neuro: COMMON NORMALS: patient oriented x3, moves all extremities, no focal motor deficits and no sensory deficits noted SENSORIUM/ORIENTATION: Yes alert MENINGEAL SIGNS: Yes no meningeal signs Psych: COMMON NORMALS: mental status grossly normal, cooperative and speech normal SPEECH: Yes normal speech Skin: COMMON NORMALS: no rashes or lesions noted GENERAL SKIN EXAM: no rashes or lesions noted Course Vital Signs: Vital signs: Vital Signs Temperature 98.4 F 09/28/25 19:48 Pulse Rate 82 11/21/24 23:03 Respiratory Rate 17 11/21/24 23:03 Blood Pressure 118/71 11/21/24 23:03 Pulse Oximetry 96 11/21/24 23:03 Oxygen Delivery Me thod Room Air 11/21/24 22:44 MDM - Abdominal Pain Medical Decision Making This patient presented with nausea vomiting has been persistent for the past 24 hours, had sought treatment at [facility], initially was told it was [place] but found out this was [facility] in [place]. Patient actively retching at time of examination, she is given Compazine and this greatly improves her symptoms. By lab she is found to have mild leukocytosis and minimal electrolyte derangement both consistent with her vomiting. A CT of the abdomen and pelvis does not show any significant acute findings, she has mild colitis which again likely secondary to her gastroenteritis/vomiting. There is evidence that she does have a mild urinary tract infection which could be complicating issues. She also tells me that she has been driving to [place] from [place], [place] for work and she thinks that she has been getting persistently carsick. She also is a chronic marijuana user. All of these are contributory and from an ER standpoint do not feel that there is any emergent reason that she needs to come to the hospital, as she is noted to be drinking water without complication prior to discharge. Will send Compazine to pharmacy for her to take, both p.o. and suppository form. Will treat her urinary tract infection, and she is given return precautions. Lab Data 11/21/24 20:48 11/21/24 20:48 Labs/Radiology: Radiology Impressions Abdomen/Pelvis CT 11/21/24 20:43 IMPRESSION: 1. Areas of mild bowel wall thickening are likely exaggerated by underdistention/peristalsis. Mild infectious/inflammatory colitis not excluded. 2. 1.1 cm hypodensity in the left hepatic lobe favors a hemangioma but is incompletely characterized. Consider nonemergent right upper quadrant ultrasound and/or MRI abdomen without and with contrast. 3. Small hiatal hernia. 4. Possible 2 mm nonobstructing right renal calculus, though assessment is somewhat limited due to possible excretion of intravenous contrast. 5. Additional nonemergent findings as above. COMMENTS: Consistent with the [employer]'s Incidental Findings Committee white paper (J Am Tushar Radiol 2018): Any incidental renal lesion less than 1 cm or classified as too small to characterize, or any incidental cystic renal lesion characterized as simple-appearing, is likely benign. No follow-up imaging is recommended for these lesions per consensus recommendations based on imaging criteria. Laboratory Results WBC 14.50 10^3/uL (3.29-11.43) H 11/21/24 20:48 RBC 4.55 10^6/uL (3.85-5.65) 11/21/24 20:48 Hgb 14.20 g/dL (11.27-16.99) 11/21/24 20:48 Hct 40.8 % (36-47) 11/21/24 20:48 MCV 89.7 fl (85-98) 11/21/24 20:48 MCH 31.2 pg (27-33) 11/21/24 20:48 MCHC 34.8 g/dL (30-55) 11/21/24 20:48 RDW 13.1 % (12.1-15.1) 11/21/24 20:48 Plt Count 313 10^3/cmm (157-399) 11/21/24 20:48 MPV 9.3 fL (7.4-10.4) 11/21/24 20:48 Neut % (Auto) 84.1 % 11/21/24 20:48 Lymph % (Auto) 7.1 % 11/21/24 20:48 Hettinger % (Auto) 8.0 % 11/21/24 20:48 Eos % (Auto) 0.1 % 11/21/24 20:48 Baso % (Auto) 0.1 % 11/21/24 20:48 Neut # (Auto) 12.18 10^3/uL (1.8-7.7) H 11/21/24 20:48 Lymph # (Auto) 1.0 10^3/uL (0.8-4.8) 11/21/24 20:48 Hettinger # (Auto) 1.2 10^3/uL (0.2-0.9) H 11/21/24 20:48 Eos # (Auto) 0.0 10^3/uL (0.0-0.8) 11/21/24 20:48 Baso # (Auto) 0.0 10^3/uL (0.0-0.1) 11/21/24 20:48 Nucleated RBC % (auto) 0 % 11/21/24 20:48 Nucleated RBCs # 0.0 /100WBC 11/21/24 20:48 Sodium 135 mmol/L (136-145) L 11/21/24 20:48 Potassium 3.3 mmol/L (3.5-5.1) L 11/21/24 20:48 Chloride 100 mmol/L (98-107) 11/21/24 20:48 Carbon Dioxide 18 mmol/L (22-29) L 11/21/24 20:48 Anion Gap 20.3 (5-19) H 11/21/24 20:48 BUN 11 mg/dL (6-20) 11/21/24 20:48 Creatinine 0.7 mg/dL (0.5-0.9) 11/21/24 20:48 GFR Calculation 95.8 mL/min (90-130) 11/21/24 20:48 Glucose 126 mg/dL (65-115) H 11/21/24 20:48 Calculated Osmolality 281 mOsm/kg (285-295) L 11/21/24 20:48 Calcium 9.7 mg/dL (8.5-10.5) 11/21/24 20:48 Total Bilirubin 0.9 mg/dL (0.15-1.2) 11/21/24 20:48 AST 15 U/L (0-32) 11/21/24 20:48 ALT 14 U/L (0-33) 11/21/24 20:48 Alkaline Phosphatase 71 U/L (35-105) 11/21/24 20:48 Total Protein 8.5 g/dL (6.6-8.7) 11/21/24 20:48 Albumin 4.9 g/dL (3.5-5.2) 11/21/24 20:48 Globulin 3.6 g/dL (1.3-4.6) 11/21/24 20:48 Lipase 19 U/L (13-60) 11/21/24 20:48 HCG, Qual Negative (Negative) 11/21/24 20:48 Urine Color Yellow (Yellow) 11/21/24 21:21 Urine Appearance Cloudy (CLEAR) A 11/21/24 21:21 Urine pH 6.5 (5-7) 11/21/24 21:21 Ur Specific Mackey 1.034 (1.005-1.030) H 11/21/24 21:21 Urine Protein 2+ (Negative) A 11/21/24 21:21 Urine Glucose (UA) Negative (Normal) 11/21/24 21:21 Urine Ketones 4+ (Negative) 11/21/24 21:21 Urine Blood Trace (Negative) A 11/21/24 21:21 Urine Nitrate Negative (Negative) 11/21/24 21:21 Urine Bilirubin Negative (Negative) 11/21/24 21:21 Urine Urobilinogen 1.0 mg/dL (Negative) 11/21/24 21:21 Ur Leukocyte Esterase 1+ (Negative) A 11/21/24 21:21 Urine RBC 11-20 /hpf (0-2) H 11/21/24 21:21 Urine WBC 11-20 /hpf (0-5) H 11/21/24 21:21 Ur Squamous Epith Cells 11-20 /hpf (0-5) H 11/21/24 21:21 Amorphous Sediment Not Reportable 11/21/24 21:21 Urine Bacteria 3+ /hpf (NONE) H 11/21/24 21:21 Hyaline Casts 5.77 /lpf 11/21/24 21:21 All radiology interpretation(s) finalized by discharge Discharge Plan Discharge Patient Disposition: Home Clinical Impression: Gastroenteritis, Intractable vomiting with nausea Condition: Stable Prescriptions: New prochlorperazine maleate [Compazine] 10 mg tablet 10 mg PO Q8H PRN (Reason: nausea and vomiting) 1 Days Qty: 20 0RF prochlorperazine [Compazine] 25 mg suppository 25 mg W[place] BID PRN (Reason: nausea and vomiting) Qty: 12 0RF cefdinir 300 mg capsule 300 mg PO BID 5 Days Qty: 10 0RF Discharge Orders: Discharge ED (Routine); Ordered 11/21/24 Ordered By: Ford Quiñonez Patient Instructions: Opioid Safety, Pain Management, Patient Portal & Jw Instructions Activity Restrictions/Additional Instructions: Gastroenteritis Discharge Instructions Diagnosis: Acute gastroenteritis with intractable nausea/vomiting, mild colitis (likely reactive), dehydration, and urinary tract infection. Discharge Instructions: - Hydration and Nutrition - Encourage frequent intake of clear fluids (e.g., water, oral rehydration solution, diluted juice, broth) to address dehydration. Oral rehydration is the mainstay of therapy and should be prioritized over symptomatic medications. - Avoid caffeinated, alcoholic, or sugary beverages, which may worsen diarrhea. - Gradually advance diet as tolerated, starting with bland foods (e.g., crackers, rice, bananas) once vomiting subsides. - Antiemetic Therapy: Prochlorperazine (Compazine) - Oral: Prochlorperazine 10 mg by mouth every 8 hours as needed for nausea and vomiting. Adjust dosing based on clinical response; use the lowest effective dose. - Rectal (Suppository): Prochlorperazine 25 mg per rectum twice daily as needed for severe nausea/vomiting or if unable to tolerate oral medication. - Monitor for side effects: sedation, extrapyramidal symptoms, hypotension. Advise to avoid driving or operating heavy machinery if drowsy. - Do not exceed recommended dosing. If symptoms persist or worsen, seek medical attention. - Antibiotic Therapy: Cefdinir - Cefdinir 300 mg orally every 12 hours for 5 days for urinary tract infection, per FDA labeling for adult dosing. - Take with or without food. Complete the full course even if symptoms improve. - Common side effects: diarrhea, rash, headache. Report any severe allergic reaction (e.g., rash, swelling, difficulty breathing) immediately. - Additional Symptomatic Management - Avoid antimotility agents (e.g., loperamide) in the setting of colitis or fever, as per IDSA guidelines. - Acetaminophen may be used for fever or abdominal discomfort, if needed. - Follow-Up and Warning Signs - Return for evaluation if unable to maintain oral hydration, persistent vomiting, worsening abdominal pain, bloody stools, high fever (>38.5?C), or signs of severe dehydration (e.g., decreased urine output, dizziness, confusion). - Schedule follow-up with primary care or infectious disease as clinically indicated. Patient Education - Emphasize the importance of hydration and completion of antibiotics. - Review medication side effects and when to seek urgent care. - Reinforce hand hygiene to prevent transmission. Print Language: Cameroonian Coding Level of Care Code ED Splitting Machine Operator for Chg Fwd Documented by User: Gerald Matias, 11/21/24 23:57 HPI - Abdominal Pain General: Chief Complaint: Abdominal Pain Stated Complaint: Nausea and vomiting W chest sore from vomiting Time Seen by Provider: 11/21/24 20:28 Related Data Previous Rx's ?Medication ?Instructions ?Recorded cefdinir 300 mg capsule 300 mg PO BID 5 days #10 caps 11/21/24 prochlorperazine 25 mg rectal 25 mg WY BID PRN nausea and 11/21/24 suppository (Compazine) vomiting #12 ea prochlorperazine maleate 10 mg 10 mg PO Q8H PRN nausea and 11/21/24 tablet (Compazine) vomiting 24 hours #20 tabs Allergies Allergy/AdvReac Type Severity Reaction Status Date / Time No Known Allergies Allergy Verified 11/21/24 21:41 Course Vital Signs: Vital signs: Vital Signs Temperature 98.4 F 11/21/24 19:48 Pulse Rate 82 11/21/24 23:03 Respiratory Rate 17 11/21/24 23:03 Blood Pressure 118/71 11/21/24 23:03 Pulse Oximetry 96 11/21/24 23:03 Oxygen Delivery Me thod Room Air 11/21/24 22:44 MDM - Abdominal Pain Medical Decision Making This patient presented with nausea vomiting has been persistent for the past 24 hours, had sought treatment at [facility], initially was told it was [place] but found out this was [facility] in [place]. Patient actively retching at time of examination, she is given Compazine and this greatly improves her symptoms. By lab she is found to have mild leukocytosis and minimal electrolyte derangement both consistent with her vomiting. A CT of the abdomen and pelvis does not show any significant acute findings, she has mild colitis which again likely secondary to her gastroenteritis/vomiting. There is evidence that she does have a mild urinary tract infection which could be complicating issues. She also tells me that she has been driving to [place] from [place], [place] for work and she thinks that she has been getting persistently carsick. She also is a chronic marijuana user. All of these are contributory and from an ER standpoint do not feel that there is any emergent reason that she needs to come to the hospital, as she is noted to be drinking water without complication prior to discharge. Will send Compazine to pharmacy for her to take, both p.o. and suppository form. Will treat her urinary tract infection, and she is given return precautions. Patient was originally seen by Mr. Olamide PA-C. I agree with his history, evaluation, and treatment. Lab Data 11/21/24 20:48 11/21/24 20:48 Labs/Radiology: Radiology Impressions Abdomen/Pelvis CT 11/21/24 20:43 IMPRESSION: 1. Areas of mild bowel wall thickening are likely exaggerated by underdistention/peristalsis. Mild infectious/inflammatory colitis not excluded. 2. 1.1 cm hypodensity in the left hepatic lobe favors a hemangioma but is incompletely characterized. Consider nonemergent right upper quadrant ultrasound and/or MRI abdomen without and with contrast. 3. Small hiatal hernia. 4. Possible 2 mm nonobstructing right renal calculus, though assessment is somewhat limited due to possible excretion of intravenous contrast. 5. Additional nonemergent findings as above. COMMENTS: Consistent with the [employer]'s Incidental Findings Committee white paper (J Am Tushar Radiol 2018): Any incidental renal lesion less than 1 cm or classified as too small to characterize, or any incidental cystic renal lesion characterized as simple-appearing, is likely benign. No follow-up imaging is recommended for these lesions per consensus recommendations based on imaging criteria. Laboratory Results WBC 14.50 10^3/uL (3.29-11.43) H 11/21/24 20:48 RBC 4.55 10^6/uL (3.85-5.65) 11/21/24 20:48 Hgb 14.20 g/dL (11.27-16.99) 11/21/24 20:48 Hct 40.8 % (36-47) 11/21/24 20:48 MCV 89.7 fl (85-98) 11/21/24 20:48 MCH 31.2 pg (27-33) 11/21/24 20:48 MCHC 34.8 g/dL (30-55) 11/21/24 20:48 RDW 13.1 % (12.1-15.1) 11/21/24 20:48 Plt Count 313 10^3/cmm (157-399) 11/21/24 20:48 MPV 9.3 fL (7.4-10.4) 11/21/24 20:48 Neut % (Auto) 84.1 % 11/21/24 20:48 Lymph % (Auto) 7.1 % 11/21/24 20:48 Hettinger % (Auto) 8.0 % 11/21/24 20:48 Eos % (Auto) 0.1 % 11/21/24 20:48 Baso % (Auto) 0.1 % 11/21/24 20:48 Neut # (Auto) 12.18 10^3/uL (1.8-7.7) H 11/21/24 20:48 Lymph # (Auto) 1.0 10^3/uL (0.8-4.8) 11/21/24 20:48 Hettinger # (Auto) 1.2 10^3/uL (0.2-0.9) H 11/21/24 20:48 Eos # (Auto) 0.0 10^3/uL (0.0-0.8) 11/21/24 20:48 Baso # (Auto) 0.0 10^3/uL (0.0-0.1) 11/21/24 20:48 Nucleated RBC % (auto) 0 % 11/21/24 20:48 Nucleated RBCs # 0.0 /100WBC 11/21/24 20:48 Sodium 135 mmol/L (136-145) L 11/21/24 20:48 Potassium 3.3 mmol/L (3.5-5.1) L 11/21/24 20:48 Chloride 100 mmol/L (98-107) 11/21/24 20:48 Carbon Dioxide 18 mmol/L (22-29) L 11/21/24 20:48 Anion Gap 20.3 (5-19) H 11/21/24 20:48 BUN 11 mg/dL (6-20) 11/21/24 20:48 Creatinine 0.7 mg/dL (0.5-0.9) 11/21/24 20:48 GFR Calculation 95.8 mL/min (90-130) 11/21/24 20:48 Glucose 126 mg/dL (65-115) H 11/21/24 20:48 Calculated Osmolality 281 mOsm/kg (285-295) L 11/21/24 20:48 Calcium 9.7 mg/dL (8.5-10.5) 11/21/24 20:48 Total Bilirubin 0.9 mg/dL (0.15-1.2) 11/21/24 20:48 AST 15 U/L (0-32) 11/21/24 20:48 ALT 14 U/L (0-33) 11/21/24 20:48 Alkaline Phosphatase 71 U/L (35-105) 11/21/24 20:48 Total Protein 8.5 g/dL (6.6-8.7) 11/21/24 20:48 Albumin 4.9 g/dL (3.5-5.2) 11/21/24 20:48 Globulin 3.6 g/dL (1.3-4.6) 11/21/24 20:48 Lipase 19 U/L (13-60) 11/21/24 20:48 HCG, Qual Negative (Negative) 11/21/24 20:48 Urine Color Yellow (Yellow) 11/21/24 21:21 Urine Appearance Cloudy (CLEAR) A 11/21/24 21:21 Urine pH 6.5 (5-7) 11/21/24 21:21 Ur Specific Mackey 1.034 (1.005-1.030) H 11/21/24 21:21 Urine Protein 2+ (Negative) A 11/21/24 21:21 Urine Glucose (UA) Negative (Normal) 11/21/24 21:21 Urine Ketones 4+ (Negative) 11/21/24 21:21 Urine Blood Trace (Negative) A 11/21/24 21:21 Urine Nitrate Negative (Negative) 11/21/24 21:21 Urine Bilirubin Negative (Negative) 11/21/24 21:21 Urine Urobilinogen 1.0 mg/dL (Negative) 11/21/24 21:21 Ur Leukocyte Esterase 1+ (Negative) A 11/21/24 21:21 Urine RBC 11-20 /hpf (0-2) H 11/21/24 21:21 Urine WBC 11-20 /hpf (0-5) H 11/21/24 21:21 Ur Squamous Epith Cells 11-20 /hpf (0-5) H 11/21/24 21:21 Amorphous Sediment Not Reportable 11/21/24 21:21 Urine Bacteria 3+ /hpf (NONE) H 11/21/24 21:21 Hyaline Casts 5.77 /lpf 11/21/24 21:21 Discharge Plan Discharge Patient Disposition: Home Clinical Impression: Gastroenteritis, Intractable vomiting with nausea Condition: Stable Prescriptions: New prochlorperazine maleate [Compazine] 10 mg tablet 10 mg PO Q8H PRN (Reason: nausea and vomiting) 1 Days Qty: 20 0RF prochlorperazine [Compazine] 25 mg suppository 25 mg W[place] BID PRN (Reason: nausea and vomiting) Qty: 12 0RF cefdinir 300 mg capsule 300 mg PO BID 5 Days Qty: 10 0RF Discharge Orders: Discharge ED (Routine); Ordered 11/21/24 Ordered By: Ford Quiñonez Patient Instructions: Opioid Safety, Pain Management, Patient Portal & Jw Instructions Activity Restrictions/Additional Instructions: Gastroenteritis Discharge Instructions Diagnosis: Acute gastroenteritis with intractable nausea/vomiting, mild colitis (likely reactive), dehydration, and urinary tract infection. Discharge Instructions: - Hydration and Nutrition - Encourage frequent intake of clear fluids (e.g., water, oral rehydration solution, diluted juice, broth) to address dehydration. Oral rehydration is the mainstay of therapy and should be prioritized over symptomatic medications. - Avoid caffeinated, alcoholic, or sugary beverages, which may worsen diarrhea. - Gradually advance diet as tolerated, starting with bland foods (e.g., crackers, rice, bananas) once vomiting subsides. - Antiemetic Therapy: Prochlorperazine (Compazine) - Oral: Prochlorperazine 10 mg by mouth every 8 hours as needed for nausea and vomiting. Adjust dosing based on clinical response; use the lowest effective dose. - Rectal (Suppository): Prochlorperazine 25 mg per rectum twice daily as needed for severe nausea/vomiting or if unable to tolerate oral medication. - Monitor for side effects: sedation, extrapyramidal symptoms, hypotension. Advise to avoid driving or operating heavy machinery if drowsy. - Do not exceed recommended dosing. If symptoms persist or worsen, seek medical attention. - Antibiotic Therapy: Cefdinir - Cefdinir 300 mg orally every 12 hours for 5 days for urinary tract infection, per FDA labeling for adult dosing. - Take with or without food. Complete the full course even if symptoms improve. - Common side effects: diarrhea, rash, headache. Report any severe allergic reaction (e.g., rash, swelling, difficulty breathing) immediately. - Additional Symptomatic Management - Avoid antimotility agents (e.g., loperamide) in the setting of colitis or fever, as per IDSA guidelines. - Acetaminophen may be used for fever or abdominal discomfort, if needed. - Follow-Up and Warning Signs - Return for evaluation if unable to maintain oral hydration, persistent vomiting, worsening abdominal pain, bloody stools, high fever (>38.5?C), or signs of severe dehydration (e.g., decreased urine output, dizziness, confusion). - Schedule follow-up with primary care or infectious disease as clinically indicated. Patient Education - Emphasize the importance of hydration and completion of antibiotics. - Review medication side effects and when to seek urgent care. - Reinforce hand hygiene to prevent transmission. Print Language: Cam[place]onian Coding Level of Care Code ED Splitting Machine Operator for Imer Hernandez
== END 2024-11-21 23:04 | disposition home or self-care (01) ==
PROVIDERS: Emergency Medicine; Emergency Provider Physician Assistant
DX: K52.9 Noninfective gastroenteritis and colitis, unspecified (principal); R11.2 Nausea with vomiting, unspecified
CPT/HCPCS: 36415; 74177; 80053; 81001; 83690; 84703; 85025; 87077; 87086; 87186; 96374; 99285; J0780; J7030